=== PATIENT | female | born 2000 | race African-American/Black ===

== ENCOUNTER 2022-03-02 17:00 | Inpatient (IN) | payer OTHER, SELFPAY ==
[2022-03-02 17:04] VITALS: BP 137/90; PULSE 100; RESP 18; TEMP 37.1; O2SAT 99; BMI 21.6
--- NOTE | 2022-03-02 17:16 | ED.PSYCH ---
HPI - Psych General Chief Complaint: Psychiatric Symptoms Stated Complaint: Psych Eval Time Seen by Provider: 03/02/22 17:15 Source: patient Mode of arrival: ambulatory Limitations: no limitations History of Present Illness HPI Narrative: This is a 21-year-old female past medical history significant for depression presenting to the emergency department with complaints of suicidal ideation with plan to cut wrist. According to patient she told a retail customer service specialist on campus that she is feeling suicidal, the retail customer service specialist reached out to the crisis team who called 911. Patient tells me she lives on campus by herself without a roommate. She has a therapist on campus however no psychiatrist. Patient is not taking any medications. She denies visual, auditory and tactile hallucinations. Denies drugs, alcohol and tobacco. She denies any previous SI at times. Denies homicidal ideation. Denies any medical complaints at this time. MD complaint: suicidal ideation and feels depressed Onset (ago): day(s) Duration: constant Relieving factors: none Exacerbating factors: none Associated psychiatric symptoms: none Associated symptoms: denies other symptoms Treatments prior to arrival: none If self harm: admits thoughts of self harm and has plan (cut wrists ) Related Data Home Medications Medication Instructions Recorded Confirmed ferrous sulfate 325 mg (65 mg 325 mg PO BID 03/02/22 03/02/22 iron) tablet Allergies Allergy/AdvReac Type Severity Reaction Status Date / Time Unable to Assess Allergy Unverified 03/02/22 17:15 Review of Systems Review of Systems: Constitutional : No Fever, No Chills ENT/Mouth : No Ear Pain, No Nasal Congestion, No sore throat Eyes: No Eye Pain, No Swelling, No Redness Cardiovascular : No Chest Pain, No SOB Respiratory : No Cough, No Sputum, No Dyspnea Gastrointestinal : No Nausea, No Vomiting, No Diarrhea, No Hematochezia, No Melena Genitourinary : No Dysuria, No Urinary Frequency, No Hematuria Musculoskeletal : No Myalgias Skin : No Skin Lesions, No rash Neuro : No Weakness, No Numbness, No Paresthesias, No Dizziness, No Headache Psych : positive Anxiety, positive Depression, positive SI/HI All other systems reviewed and are negative Yes all other systems are reviewed and are negative [facility] Past Medical History Attestation statement: The following information was validated with the patient. Source: old records reviewed and nursing notes reviewed Social History Social History Advance Directives: No Advance Directives Information Provided: No Patient : No Physical Exam Vital Signs: Vital Signs: Last Vital Signs Temp 98.7 F 03/02/22 17:04 Pulse 100 03/02/22 17:04 Resp 18 03/02/22 17:04 BP 137/90 H 03/02/22 17:04 Pulse Ox 99 03/02/22 17:04 BMI result Body Mass Index 21.6 vss Appearance: Alert.? Oriented X3.? No acute distress.?Flat affect Head: Normocephalic, atraumatic, no step-offs or deformities Eyes: Pupils equal, round and reactive to light.? ENT: Pharynx normal.? Neck: Normal inspection.? Neck supple.? CVS: Normal heart rate and rhythm.? Pulses normal.? Respiratory: No respiratory distress.? Breath sounds normal.? Abdomen: Soft and nontender.? Skin: Skin warm and dry.? Normal skin color.? Normal skin turgor.? Extremities: No lower extremity edema.? No calf ttp. 5/5 strength to bilateral upper and lower extremities Back: No midline tenderness, no C-spine tenderness, full range of motion, no CVA tenderness bilaterally Neuro: Oriented X 3.? No motor deficit.? No sensory deficit. CN 2-12 intact Course Reevaluation(s) Reevaluation #1: CBC within normal limits. Chemistry with no acute electrolyte abnormalities requiring intervention. Urine clean. Urine toxicology negative. Ethanol negative. COVID negative. Plan at this time is for patient to go to tomorrow. At this time patient will be placed into physician observation to allow more time to be placed on the inpatient psychiatric unit. At time observation was started patient common cooperative no acute distress. Will continue to monitor. Time: 18:57 MDM - Psych MDM Narrative Medical decision making narrative: 1715 21-year-old female presents with suicidal ideation with plan to cut bilateral wrists. Seen earlier by N Physical exam benign. Patient w/ flat affect Plan medical clearance. Medical Records Attestation: I reviewed the patient's medical records. Lab Data Attestation: I reviewed the patient's lab results. Result diagrams: 03/02/22 17:42 03/02/22 17:42 Labs: Lab Results 03/02/22 03/02/22 03/02/22 Range/Units 17:38 17:38 17:38 WBC (4.8-10.8) X10*3/uL RBC (4.20-5.50) X10*6/uL Hgb (12.0-16.0) g/dl Hct (37.0-47.0) % MCV (80.0-98.0) fL MCH (27.0-33.0) pg MCHC (31.0-35.0) g/dl RDW (11.0-16.0) % Plt Count (160-400) X10*3/uL MPV (9.4-12.3) fL Immature Gran % (Auto) (0.0-0.4) % Neut % (Auto) (45-73) % Lymph % (Auto) (20-40) % [place] % (Auto) (2-11) % Eos % (Auto) (0-4) % Baso % (Auto) (0-2) % Lymph # (Auto) (1.2-4.9) X10*3/uL [place] # (Auto) (0.1-1.2) X10*3/uL Eos # (Auto) (0.0-0.4) X10*3/uL Baso # (Auto) (0.0-0.2) X10*3/uL Abs Immat Gran (auto) (0.00-0.03) X10*3/uL Absolute Neuts (auto) (2.0-8.3) x10*3/uL Absolute Nucleated RBC (0.0-0.012) X10*3/uL Nucleated RBC % (auto) (0.0-0.2) /100WBC Sodium (135-145) mmol/L Potassium (3.3-5.1) mmol/L Chloride (96-108) mmol/L Carbon Dioxide (22-29) mmol/L Anion Gap (12-20) BUN (9-16) mg/dL Creatinine (0.5-1.4) mg/dL Estim Creat Clear Calc Estimated GFR Random Glucose (60-115) mg/dL Calcium (8.4-10.2) mg/dL Magnesium (1.6-2.6) mg/dL Total Bilirubin (0.0-1.0) mg/dL AST (5-31) U/L ALT (0-31) U/L Alkaline Phosphatase (39-117) U/L Total Protein (6.5-8.0) g/dL Albumin (3.5-5.0) g/dL Urine Color YELLOW Urine Appearance HAZY Urine pH 5.5 (5.0-8.0) Ur Specific [place] >= 1.030 H (1.005-1.025) Urine Protein NEG (NEG-TRACE) MG/DL Urine Glucose (UA) NEG (NEG) MG/DL Urine Ketones NEG (NEG) MG/DL Urine Blood NEG (NEG) Urine Nitrite NEG (NEG) Ur Leukocyte Esterase NEG (NEG) Urine Test (NEGATIVE) Urine Opiates Screen Not Detected (Not Detect) Urine Fentanyl Screen Not Detected (Not Detect) Ur Barbiturates Screen Not Detected (Not Detect) Ur Phencyclidine Scrn Not Detected (Not Detect) Ur Amphetamines Screen Not Detected (Not Detect) U Benzodiazepines Scrn Not Detected (Not Detect) Urine Cocaine Screen Not Detected (Not Detect) U Marijuana (THC) Screen Not Detected (Not Detect) Ethyl Alcohol mg/dL COVID-19 ([facility]) Negative (Negative) COVID-19 Clin Com See Note 03/02/22 03/02/22 03/02/22 Range/Units 17:38 17:42 17:42 WBC 5.8 (4.8-10.8) X10*3/uL RBC 4.47 (4.20-5.50) X10*6/uL Hgb 12.5 (12.0-16.0) g/dl Hct 38.4 (37.0-47.0) % MCV 85.9 (80.0-98.0) fL MCH 28.0 (27.0-33.0) pg MCHC 32.6 (31.0-35.0) g/dl RDW 13.1 (11.0-16.0) % Plt Count 383 (160-400) X10*3/uL MPV 10.4 (9.4-12.3) fL Immature Gran % (Auto) 0.2 (0.0-0.4) % Neut % (Auto) 55.9 (45-73) % Lymph % (Auto) 32.6 (20-40) % [place] % (Auto) 9.0 (2-11) % Eos % (Auto) 1.6 (0-4) % Baso % (Auto) 0.7 (0-2) % Lymph # (Auto) 1.9 (1.2-4.9) X10*3/uL [place] # (Auto) 0.5 (0.1-1.2) X10*3/uL Eos # (Auto) 0.1 (0.0-0.4) X10*3/uL Baso # (Auto) 0.0 (0.0-0.2) X10*3/uL Abs Immat Gran (auto) 0.01 (0.00-0.03) X10*3/uL Absolute Neuts (auto) 3.2 (2.0-8.3) x10*3/uL Absolute Nucleated RBC 0.000 (0.0-0.012) X10*3/uL Nucleated RBC % (auto) 0.0 (0.0-0.2) /100WBC Sodium 136 (135-145) mmol/L Potassium 4.4 (3.3-5.1) mmol/L Chloride 103 (96-108) mmol/L Carbon Dioxide 27 (22-29) mmol/L Anion Gap 10 L (12-20) BUN 8 L (9-16) mg/dL Creatinine 0.84 (0.5-1.4) mg/dL Estim Creat Clear Calc 96.1 Estimated GFR > 60 Random Glucose 89 (60-115) mg/dL Calcium 10.1 (8.4-10.2) mg/dL Magnesium 2.1 (1.6-2.6) mg/dL Total Bilirubin 0.3 (0.0-1.0) mg/dL AST 15 (5-31) U/L ALT 13 (0-31) U/L Alkaline Phosphatase 101 (39-117) U/L Total Protein 7.9 (6.5-8.0) g/dL Albumin 4.5 (3.5-5.0) g/dL Urine Color Urine Appearance Urine pH (5.0-8.0) Ur Specific [place] (1.005-1.025) Urine Protein (NEG-TRACE) MG/DL Urine Glucose (UA) (NEG) MG/DL Urine Ketones (NEG) MG/DL Urine Blood (NEG) Urine Nitrite (NEG) Ur Leukocyte Esterase (NEG) Urine Test NEGATIVE (NEGATIVE) Urine Opiates Screen (Not Detect) Urine Fentanyl Screen (Not Detect) Ur Barbiturates Screen (Not Detect) Ur Phencyclidine Scrn (Not Detect) Ur Amphetamines Screen (Not Detect) U Benzodiazepines Scrn (Not Detect) Urine Cocaine Screen (Not Detect) U Marijuana (THC) Screen (Not Detect) Ethyl Alcohol mg/dL COVID-19 ([facility]) (Negative) COVID-19 Clin Com 03/02/22 Range/Units 17:42 WBC (4.8-10.8) X10*3/uL RBC (4.20-5.50) X10*6/uL Hgb (12.0-16.0) g/dl Hct (37.0-47.0) % MCV (80.0-98.0) fL MCH (27.0-33.0) pg MCHC (31.0-35.0) g/dl RDW (11.0-16.0) % Plt Count (160-400) X10*3/uL MPV (9.4-12.3) fL Immature Gran % (Auto) (0.0-0.4) % Neut % (Auto) (45-73) % Lymph % (Auto) (20-40) % [place] % (Auto) (2-11) % Eos % (Auto) (0-4) % Baso % (Auto) (0-2) % Lymph # (Auto) (1.2-4.9) X10*3/uL [place] # (Auto) (0.1-1.2) X10*3/uL Eos # (Auto) (0.0-0.4) X10*3/uL Baso # (Auto) (0.0-0.2) X10*3/uL Abs Immat Gran (auto) (0.00-0.03) X10*3/uL Absolute Neuts (auto) (2.0-8.3) x10*3/uL Absolute Nucleated RBC (0.0-0.012) X10*3/uL Nucleated RBC % (auto) (0.0-0.2) /100WBC Sodium (135-145) mmol/L Potassium (3.3-5.1) mmol/L Chloride (96-108) mmol/L Carbon Dioxide (22-29) mmol/L Anion Gap (12-20) BUN (9-16) mg/dL Creatinine (0.5-1.4) mg/dL Estim Creat Clear Calc Estimated GFR Random Glucose (60-115) mg/dL Calcium (8.4-10.2) mg/dL Magnesium (1.6-2.6) mg/dL Total Bilirubin (0.0-1.0) mg/dL AST (5-31) U/L ALT (0-31) U/L Alkaline Phosphatase (39-117) U/L Total Protein (6.5-8.0) g/dL Albumin (3.5-5.0) g/dL Urine Color Urine Appearance Urine pH (5.0-8.0) Ur Specific [place] (1.005-1.025) Urine Protein (NEG-TRACE) MG/DL Urine Glucose (UA) (NEG) MG/DL Urine Ketones (NEG) MG/DL Urine Blood (NEG) Urine Nitrite (NEG) Ur Leukocyte Esterase (NEG) Urine Test (NEGATIVE) Urine Opiates Screen (Not Detect) Urine Fentanyl Screen (Not Detect) Ur Barbiturates Screen (Not Detect) Ur Phencyclidine Scrn (Not Detect) Ur Amphetamines Screen (Not Detect) U Benzodiazepines Scrn (Not Detect) Urine Cocaine Screen (Not Detect) U Marijuana (THC) Screen (Not Detect) Ethyl Alcohol < 10 mg/dL COVID-19 ([facility]) (Negative) COVID-19 Clin Com Critical Care Time Critical Care Time Critical Care Time: No Discharge Plan Discharge Clinical Impression: Suicidal ideation, Depression Patient Disposition: Still a Patient Prescriptions: No Action ferrous sulfate 325 mg (65 mg iron) Tablet 325 mg PO BID 0RF
[2022-03-02 17:47] LABS: MANUAL DIFF FLAG NO
--- NOTE | 2022-03-02 17:49 | PHA.MEDREC ---
Pharmacy Consult ? Medication Reconciliation Pharmacy has completed the medication reconciliation. Pt states that she takes an iron supplement twice a day when she remembers. Tosha Tejada, ReidD
[2022-03-02 17:51] LABS: Appearance Urine HAZY; Color Urine YELLOW; Glucose Urine UA NEG (NEG); Leukocyte Esterase Urine NEG (NEG); Nitrite Urine NEG (NEG); PH 5.5 (5.0-8.0); Specific Gravity - Urine >= 1.030 (1.005-1.025); Urine Blood NEG (NEG); Urine Ketones NEG (NEG); Urine Protein NEG (NEG-TRACE)
[2022-03-02 17:54] LABS: UPreg QC Valid YES; Urine Pregnancy NEGATIVE (NEGATIVE)
[2022-03-02 18:05] LABS: Ethanol < 10 mg/dL
[2022-03-02 18:07] LABS: Amphetamine Screen Urine Not Detected (Not Detect); Barbiturates, Urine Not Detected (Not Detect); Benzodiazepines Screen Urine Not Detected (Not Detect); Cannabinoid Screen Urine Not Detected (Not Detect); Cocaine Screen Urine Not Detected (Not Detect); Fentanyl, urine Not Detected (Not Detect); Opiate Screen Urine Not Detected (Not Detect); Phencyclidine Screen Urine Not Detected (Not Detect)
[2022-03-02 18:08] LABS: COVID-19 Test Negative (Negative)
[2022-03-02 18:09] LABS: Alanine Aminotransferase 13 U/L (0-31); Albumin Level 4.5 g/dL (3.5-5.0); Alkaline Phosphatase 101 U/L (39-117); Anion Gap 10 (12-20); Aspartate Amino Transferase 15 U/L (5-31); Bilirubin Total 0.3 mg/dL (0.0-1.0); Blood Urea Nitrogen 8 mg/dL (9-16); Calcium 10.1 mg/dL (8.4-10.2); Carbon Dioxide 27 mmol/L (22-29); Chloride 103 mmol/L (96-108); Creatinine Clr Calc Pharmacy 96.1; Estimated Glomerular Filt Rate > 60; Glucose Random 89 mg/dL (60-115); Magnesium 2.1 mg/dL (1.6-2.6); Potassium 4.4 mmol/L (3.3-5.1); Sodium 136 mmol/L (135-145); Total Protein 7.9 g/dL (6.5-8.0)
[2022-03-02 18:16] LABS: Basophils Percent Auto 0.7 % (0-2); Eosinophils Absolute Auto 0.1 X10*3/uL (0.0-0.4); Eosinophils Percent Auto 1.6 % (0-4); Hematocrit 38.4 % (37.0-47.0); Hemoglobin 12.5 g/dl (12.0-16.0); Imm Gran Abs Auto 0.01 X10*3/uL (0.00-0.03); Imm Gran Pct Auto 0.2 % (0.0-0.4); Lymphocytes Absolute Auto 1.9 X10*3/uL (1.2-4.9); Lymphocytes Percent Auto 32.6 % (20-40); Mean Corpuscular HGB Conc 32.6 g/dl (31.0-35.0); Mean Corpuscular Volume 85.9 fL (80.0-98.0); Mean Platelet Volume 10.4 fL (9.4-12.3); Monocytes Absolute Auto 0.5 X10*3/uL (0.1-1.2); Neutrophils Absolute Auto 3.2 x10*3/uL (2.0-8.3); Neutrophils Percent Auto 55.9 % (45-73); Platelet Count 383 X10*3/uL (160-400); Red Blood Count 4.47 X10*6/uL (4.20-5.50); Red Cell Distribution Width 13.1 % (11.0-16.0); White Blood Count 5.8 X10*3/uL (4.8-10.8)
[2022-03-03 05:00] VITALS: RESP 17
[2022-03-03 08:50] VITALS: BP 108/64; PULSE 86; RESP 16; TEMP 37.2; O2SAT 98
[2022-03-03 14:40] LABS: Iron 91 mcg/dL (30-160); Percent Iron Saturation 28 % (15-50); Total Iron Binding Capacity 322 mcg/dL (228-428); Unsaturated Iron Binding 231 ug/dL
--- NOTE | 2022-03-03 15:53 | P.HPPS_ITS ---
HPI Date of Service: 03/03/22 Chief Complaint: si Sources of Information: patient interviewed, chart reviewed and crisis/core team assessment reviewed Additional Sources of Information: Kennedi(mother)/Da (father) [phone] HPI Subjective Notes: Conditional Voluntary Narrative: Ms. Trinidad is a 21 year-old woman with hx of depression. She was assessed by [facility] crisis at the request of her [facility]'s counselor due to Ms. Trinidad disclosing cutting thighs with kitchen knife and subsequently having increased suicidal ideation. She was transported via EMS to [facility] ED. In the ED, her utox was negative. On the unit, Ms. Trinidad reports increased depression for the past 2 months. She reports in last year family member from mother side . She also reports feeling significant pressure at school and to perform well as the first member of her family in college. She reports she has reach out to friends and family during this past several weeks. She reports parents do not believe in mental illness and there response has been snap out of it. Pt denies hx of psychosis. She denies hx of increase energy or elated mood. Past Psychiatric History: Inpatient: none OP: none Past med trials: never been on psychotropic meds. Suicide attempts: denies Medical Evaluation Reviewed: Yes [facility] Family History: denies Social History: born in [place]. Youngest of 6 siblings. Teja at [employer], doing well. Strong expectations from parents. Substance History: none Trauma History: not disclose Diagnostics Vital Signs (24Hr): Vital Signs - 24 hr 03/02/22 17:04 03/03/22 05:00 03/03/22 08:50 Temperature 98.7 F 98.9 F Pulse Rate 100 86 Respiratory Rate 18 17 16 Blood Pressure 137/90 H 108/64 Pulse Oximetry 99 98 BMI result Body Mass Index 21.6 Labs Results: 03/02/22 17:42 03/02/22 17:42 Labs: Laboratory Results - last 48 hr 03/02/22 03/02/22 03/02/22 17:38 17:38 17:38 WBC RBC Hgb Hct MCV MCH MCHC RDW Plt Count MPV Immature Gran % (Auto) Neut % (Auto) Lymph % (Auto) [place] % (Auto) Eos % (Auto) Baso % (Auto) Lymph # (Auto) [place] # (Auto) Eos # (Auto) Baso # (Auto) Abs Immat Gran (auto) Absolute Neuts (auto) Absolute Nucleated RBC Nucleated RBC % (auto) Sodium Potassium Chloride Carbon Dioxide Anion Gap BUN Creatinine Estim Creat Clear Calc Estimated GFR Random Glucose Calcium Magnesium Iron TIBC % Saturation Unsat Iron Binding Total Bilirubin AST ALT Alkaline Phosphatase Total Protein Albumin Urine Color YELLOW Urine Appearance HAZY Urine pH 5.5 Ur Specific [place] >= 1.030 H Urine Protein NEG Urine Glucose (UA) NEG Urine Ketones NEG Urine Blood NEG Urine Nitrite NEG Ur Leukocyte Esterase NEG Urine Test Urine Opiates Screen Not Detected Urine Fentanyl Screen Not Detected Ur Barbiturates Screen Not Detected Ur Phencyclidine Scrn Not Detected Ur Amphetamines Screen Not Detected U Benzodiazepines Scrn Not Detected Urine Cocaine Screen Not Detected U Marijuana (THC) Screen Not Detected Ethyl Alcohol COVID-19 ([facility]) Negative COVID-19 Clin Com See Note 03/02/22 03/02/22 03/02/22 17:38 17:42 17:42 WBC 5.8 RBC 4.47 Hgb 12.5 Hct 38.4 MCV 85.9 MCH 28.0 MCHC 32.6 RDW 13.1 Plt Count 383 MPV 10.4 Immature Gran % (Auto) 0.2 Neut % (Auto) 55.9 Lymph % (Auto) 32.6 [place] % (Auto) 9.0 Eos % (Auto) 1.6 Baso % (Auto) 0.7 Lymph # (Auto) 1.9 [place] # (Auto) 0.5 Eos # (Auto) 0.1 Baso # (Auto) 0.0 Abs Immat Gran (auto) 0.01 Absolute Neuts (auto) 3.2 Absolute Nucleated RBC 0.000 Nucleated RBC % (auto) 0.0 Sodium 136 Potassium 4.4 Chloride 103 Carbon Dioxide 27 Anion Gap 10 L BUN 8 L Creatinine 0.84 Estim Creat Clear Calc 96.1 Estimated GFR > 60 Random Glucose 89 Calcium 10.1 Magnesium 2.1 Iron TIBC % Saturation Unsat Iron Binding Total Bilirubin 0.3 AST 15 ALT 13 Alkaline Phosphatase 101 Total Protein 7.9 Albumin 4.5 Urine Color Urine Appearance Urine pH Ur Specific [place] Urine Protein Urine Glucose (UA) Urine Ketones Urine Blood Urine Nitrite Ur Leukocyte Esterase Urine Test NEGATIVE Urine Opiates Screen Urine Fentanyl Screen Ur Barbiturates Screen Ur Phencyclidine Scrn Ur Amphetamines Screen U Benzodiazepines Scrn Urine Cocaine Screen U Marijuana (THC) Screen Ethyl Alcohol COVID-19 ([facility]) COVID-19 Ghost 03/02/22 03/03/22 17:42 14:15 WBC RBC Hgb Hct MCV MCH MCHC RDW Plt Count MPV Immature Gran % (Auto) Neut % (Auto) Lymph % (Auto) [place] % (Auto) Eos % (Auto) Baso % (Auto) Lymph # (Auto) [place] # (Auto) Eos # (Auto) Baso # (Auto) Abs Immat Gran (auto) Absolute Neuts (auto) Absolute Nucleated RBC Nucleated RBC % (auto) Sodium Potassium Chloride Carbon Dioxide Anion Gap BUN Creatinine Estim Creat Clear Calc Estimated GFR Random Glucose Calcium Magnesium Iron 91 TIBC 322 % Saturation 28 Unsat Iron Binding 231 Total Bilirubin AST ALT Alkaline Phosphatase Total Protein Albumin Urine Color Urine Appearance Urine pH Ur Specific [place] Urine Protein Urine Glucose (UA) Urine Ketones Urine Blood Urine Nitrite Ur Leukocyte Esterase Urine Test Urine Opiates Screen Urine Fentanyl Screen Ur Barbiturates Screen Ur Phencyclidine Scrn Ur Amphetamines Screen U Benzodiazepines Scrn Urine Cocaine Screen U Marijuana (THC) Screen Ethyl Alcohol < 10 COVID-19 ([facility]) COVID-19 [facility] Com Meds/Allergies Meds Home Medications Acetaminophen (Acetaminophen 325 Mg Tablet) 650 mg PO Q6H PRN PRN Reason: Headache/Pain Mild Scale (1-3) Al Hydroxide/Mg Hydroxide (Magnesium Hydrox/Alum Hydrox 30 Ml Oral.Susp) 30 ml PO Q6H PRN PRN Reason: Heartburn/Nausea Hydroxyzine HCl (Hydroxyzine Hcl 25 Mg Tablet) 25 mg PO Q6H PRN PRN Reason: Anxiety Magnesium Hydroxide (Milk Of Magnesia 30 Ml Oral.Susp) 30 ml PO DAILY PRN PRN Reason: Constipation Pharmacy Consult (Consult Rx Perform Med Rec) 1 each MISCELLANE ONCE PRN PRN Reason: Consult order Trazodone HCl (Trazodone Hcl 50 Mg Tablet) 50 mg PO BEDTIME PRN PRN Reason: Insomnia Allergies Allergies Allergy/AdvReac Type Severity Reaction Status Date / Time Unable to Assess Allergy Unverified 03/02/22 17:15 Mental Status Exam Mental Status Exam Narrative: Appearance: casually groomed, fair hygiene in NAD Behavior: cooperative, quiet psychomotor:no agitation or retardation noted Speech:clear, normal rate/rhythm/volume, spontaneous Thought process:linear Thought content:no signs of psychosis, feeling depressed Mood: depressed Affect: blunted SI:none at this time HI:none VH/AH:none Delusions:none Insight/judgment:fair x 2. Memory/cog: alert, oriented x 3. grossly intact to conversational testing. Assessment & Plan Assessment & Plan (1) MDD (major depressive disorder), recurrent episode, moderate: Status: Acute Code(s): F33.1 - Major depressive disorder, recurrent, moderate Plan Ms. Mccurdy is a 21 year-old woman with hx of depression. This is her first inpatient psychiatric admission after she was evaluated by [facility] in the community at the request of her school's counselor as pt reported increased depression, cutting thigh and increase SI. On the unit, pt continues to report depressed mood, denies SI/HI but open to start treatment. We discussed risks, benefits and alternative treatment options. She agrees to start lexapro PLAN 1. Admit to M5, CV, 15 minutes checks for safety 2. Start lexapro 5mg po daily, increase to 10mg po daily in few days 3. obtain collateral information 4. aftercare planning. Patient educated on: diagnosis and medication risk/benefits Reason for continued inpatient stay Substantial Risk for: harm to self
--- NOTE | 2022-03-03 16:08 | PC.NURSE ---
Pt declined flu vaccine, already immunized this season
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
[2022-03-03] MEDS: Escitalopram Oxalate 5 MG TABLET PO (17:33)
[2022-03-03 18:00] VITALS: BP 92/62; PULSE 72; RESP 17; TEMP 36.8; O2SAT 99
[2022-03-04 06:00] VITALS: BP 108/59; PULSE 108; RESP 18; TEMP 36.7; O2SAT 95
[2022-03-04 08:06] LABS: Estimated Average Glucose 97 mg/dL
[2022-03-04 08:12] LABS: Alanine Aminotransferase 10 U/L (0-31); Albumin Level 3.7 g/dL (3.5-5.0); Alkaline Phosphatase 82 U/L (39-117); Anion Gap 8 (12-20); Aspartate Amino Transferase 13 U/L (5-31); Bilirubin Total 0.3 mg/dL (0.0-1.0); Blood Urea Nitrogen 11 mg/dL (9-16); Calcium 9.7 mg/dL (8.4-10.2); Carbon Dioxide 28 mmol/L (22-29); Chloride 105 mmol/L (96-108); Cholesterol 159 mg/dL; Creatinine Clr Calc Pharmacy 106.3; Estimated Glomerular Filt Rate > 60; Glucose Fasting 86 mg/dL (60-99); HDL Cholesterol 39 mg/dL; LDL Cholesterol Calculated 113 mg/dl; Potassium 4.1 mmol/L (3.3-5.1); Sodium 137 mmol/L (135-145); Total Protein 6.5 g/dL (6.5-8.0); Triglycerides 38 mg/dL
[2022-03-04 08:16] LABS: Thyroid Stimulating Hormone 0.88 uIU/mL (0.32-4.0)
--- NOTE | 2022-03-04 08:39 | P.PNPSI_ITS ---
Subjective Subjective Date of Service: 03/04/22 Reason For Visit: si Subjective Notes: Conditional Voluntary Interim History: 03/04: H and P reviewed. Mood is depressed but safe here. Acknowledged Hx SIB on thighs over past several months. No SI. Tolerating meds. Review of Systems Review of Systems Constitutional : No Fever, No Chills ENT/Mouth : No Ear Pain, No Nasal Congestion, No sore throat Eyes: No Eye Pain, No Swelling, No Redness Cardiovascular : No Chest Pain, No SOB Respiratory : No Cough, No Sputum, No Dyspnea Gastrointestinal : No Nausea, No Vomiting, No Diarrhea, No Hematochezia, No Melena Genitourinary : No Dysuria, No Urinary Frequency, No Hematuria Musculoskeletal : No Myalgias Skin : No Skin Lesions, No rash Neuro : No Weakness, No Numbness, No Paresthesias, No Dizziness, No Headache Psych : positive Anxiety, positive Depression, positive SI/HI All other systems reviewed and are negative Yes all other systems are reviewed and are negative Constitutional: Reports no additional constitutional complaints and Reports head ache(s) Eyes: Reports no additional eye complaints Reports system reviewed and no additional complaints, except as documented, Reports Normal hearing present and Reports headache(s) Cardiovascular: Denies chest pain, Denies lightheadedness and Denies dyspnea Respiratory: Denies dyspnea Gastrointestinal: Reports constipation, Denies diarrhea and Denies nausea Musculoskeletal: Reports no additional musculoskeletal complaints Reports Normal hearing present and Reports headache(s) Mental Status Exam Mental Status Exam Narrative: Appearance: casually groomed, fair hygiene in NAD Behavior: cooperative, quiet psychomotor:no agitation or retardation noted Speech:clear, normal rate/rhythm/volume, spontaneous Thought process:linear Thought content:no signs of psychosis, feeling depressed Mood: depressed Affect: blunted SI:none at this time HI:none VH/AH:none Delusions:none Insight/judgment:fair x 2. Memory/cog: alert, oriented x 3. grossly intact to conversational testing. Patient Appearance: Well Grooomed Level of Consciousness: Awake Mood Description: Calm Affect Description: Constricted and Sad Speech Pattern: Clear Memory Description: Intact Hallucinations: None Depressive Symptoms: Isolating-Friends/Family, Feelings of Guilt, Unhappiness, Increased Fatigue and Loss of Energy Judgement: Good Diagnostics Vital Signs (24Hr): Vital Signs - 24 hr 03/03/22 08:50 03/03/22 18:00 03/04/22 06:00 Temperature 98.9 F 98.2 F 98.0 F Pulse Rate 86 72 108 H Respiratory Rate 16 17 18 Blood Pressure 108/64 92/62 108/59 L Pulse Oximetry 98 99 95 BMI result Body Mass Index 21.6 Labs Results: 03/02/22 17:42 03/04/22 06:57 Labs: Laboratory Results - last 48 hr 03/02/22 03/02/22 03/02/22 17:38 17:38 17:38 WBC RBC Hgb Hct MCV MCH MCHC RDW Plt Count MPV Immature Gran % (Auto) Neut % (Auto) Lymph % (Auto) [place] % (Auto) Eos % (Auto) Baso % (Auto) Lymph # (Auto) [place] # (Auto) Eos # (Auto) Baso # (Auto) Abs Immat Gran (auto) Absolute Neuts (auto) Absolute Nucleated RBC Nucleated RBC % (auto) Sodium Potassium Chloride Carbon Dioxide Anion Gap BUN Creatinine Estim Creat Clear Calc Estimated GFR Random Glucose Fasting Glucose Estimat Average Glucose Hemoglobin A1c % Calcium Magnesium Iron TIBC % Saturation Unsat Iron Binding Total Bilirubin AST ALT Alkaline Phosphatase Total Protein Albumin Triglycerides Cholesterol LDL Cholesterol, Calc HDL Cholesterol TSH Urine Color YELLOW Urine Appearance HAZY Urine pH 5.5 Ur Specific [place] >= 1.030 H Urine Protein NEG Urine Glucose (UA) NEG Urine Ketones NEG Urine Blood NEG Urine Nitrite NEG Ur Leukocyte Esterase NEG Urine Test Urine Opiates Screen Not Detected Urine Fentanyl Screen Not Detected Ur Barbiturates Screen Not Detected Ur Phencyclidine Scrn Not Detected Ur Amphetamines Screen Not Detected U Benzodiazepines Scrn Not Detected Urine Cocaine Screen Not Detected U Marijuana (THC) Screen Not Detected Ethyl Alcohol COVID-19 ([facility]) Negative COVID-19 Clin Com See Note 03/02/22 03/02/22 03/02/22 17:38 17:42 17:42 WBC 5.8 RBC 4.47 Hgb 12.5 Hct 38.4 MCV 85.9 MCH 28.0 MCHC 32.6 RDW 13.1 Plt Count 383 MPV 10.4 Immature Gran % (Auto) 0.2 Neut % (Auto) 55.9 Lymph % (Auto) 32.6 [place] % (Auto) 9.0 Eos % (Auto) 1.6 Baso % (Auto) 0.7 Lymph # (Auto) 1.9 [place] # (Auto) 0.5 Eos # (Auto) 0.1 Baso # (Auto) 0.0 Abs Immat Gran (auto) 0.01 Absolute Neuts (auto) 3.2 Absolute Nucleated RBC 0.000 Nucleated RBC % (auto) 0.0 Sodium 136 Potassium 4.4 Chloride 103 Carbon Dioxide 27 Anion Gap 10 L BUN 8 L Creatinine 0.84 Estim Creat Clear Calc 96.1 Estimated GFR > 60 Random Glucose 89 Fasting Glucose Estimat Average Glucose Hemoglobin A1c % Calcium 10.1 Magnesium 2.1 Iron TIBC % Saturation Unsat Iron Binding Total Bilirubin 0.3 AST 15 ALT 13 Alkaline Phosphatase 101 Total Protein 7.9 Albumin 4.5 Triglycerides Cholesterol LDL Cholesterol, Calc HDL Cholesterol TSH Urine Color Urine Appearance Urine pH Ur Specific [place] Urine Protein Urine Glucose (UA) Urine Ketones Urine Blood Urine Nitrite Ur Leukocyte Esterase Urine Test NEGATIVE Urine Opiates Screen Urine Fentanyl Screen Ur Barbiturates Screen Ur Phencyclidine Scrn Ur Amphetamines Screen U Benzodiazepines Scrn Urine Cocaine Screen U Marijuana (THC) Screen Ethyl Alcohol COVID-19 ([facility]) COVID-19 Clin Com 03/02/22 03/03/22 03/04/22 17:42 14:15 06:57 WBC RBC Hgb Hct MCV MCH MCHC RDW Plt Count MPV Immature Gran % (Auto) Neut % (Auto) Lymph % (Auto) [place] % (Auto) Eos % (Auto) Baso % (Auto) Lymph # (Auto) [place] # (Auto) Eos # (Auto) Baso # (Auto) Abs Immat Gran (auto) Absolute Neuts (auto) Absolute Nucleated RBC Nucleated RBC % (auto) Sodium 137 Potassium 4.1 Chloride 105 Carbon Dioxide 28 Anion Gap 8 L BUN 11 Creatinine 0.76 Estim Creat Clear Calc 106.3 Estimated GFR > 60 Random Glucose Fasting Glucose 86 Estimat Average Glucose Hemoglobin A1c % Calcium 9.7 Magnesium Iron 91 TIBC 322 % Saturation 28 Unsat Iron Binding 231 Total Bilirubin 0.3 AST 13 ALT 10 Alkaline Phosphatase 82 Total Protein 6.5 Albumin 3.7 Triglycerides 38 Cholesterol 159 LDL Cholesterol, Calc 113 HDL Cholesterol 39 TSH 0.88 Urine Color Urine Appearance Urine pH Ur Specific [place] Urine Protein Urine Glucose (UA) Urine Ketones Urine Blood Urine Nitrite Ur Leukocyte Esterase Urine Test Urine Opiates Screen Urine Fentanyl Screen Ur Barbiturates Screen Ur Phencyclidine Scrn Ur Amphetamines Screen U Benzodiazepines Scrn Urine Cocaine Screen U Marijuana (THC) Screen Ethyl Alcohol < 10 COVID-19 ([facility]) COVID-19 [facility] Com 03/04/22 06:57 WBC RBC Hgb Hct MCV MCH MCHC RDW Plt Count MPV Immature Gran % (Auto) Neut % (Auto) Lymph % (Auto) [place] % (Auto) Eos % (Auto) Baso % (Auto) Lymph # (Auto) [place] # (Auto) Eos # (Auto) Baso # (Auto) Abs Immat Gran (auto) Absolute Neuts (auto) Absolute Nucleated RBC Nucleated RBC % (auto) Sodium Potassium Chloride Carbon Dioxide Anion Gap BUN Creatinine Estim Creat Clear Calc Estimated GFR Random Glucose Fasting Glucose Estimat Average Glucose 97 Hemoglobin A1c % 5.0 Calcium Magnesium Iron TIBC % Saturation Unsat Iron Binding Total Bilirubin AST ALT Alkaline Phosphatase Total Protein Albumin Triglycerides Cholesterol LDL Cholesterol, Calc HDL Cholesterol TSH Urine Color Urine Appearance Urine pH Ur Specific [place] Urine Protein Urine Glucose (UA) Urine Ketones Urine Blood Urine Nitrite Ur Leukocyte Esterase Urine Test Urine Opiates Screen Urine Fentanyl Screen Ur Barbiturates Screen Ur Phencyclidine Scrn Ur Amphetamines Screen U Benzodiazepines Scrn Urine Cocaine Screen U Marijuana (THC) Screen Ethyl Alcohol COVID-19 ([facility]) COVID-19 [facility] Com Medications Medications Current Medications Acetaminophen (Acetaminophen 325 Mg Tablet) 650 mg PO Q6H PRN PRN Reason: Headache/Pain Mild Scale (1-3) Al Hydroxide/Mg Hydroxide (Magnesium Hydrox/Alum Hydrox 30 Ml Oral.Susp) 30 ml PO Q6H PRN PRN Reason: Heartburn/Nausea Escitalopram Oxalate (Escitalopram Oxalate 5 Mg Tablet) 5 mg PO DAILY [facility] Last Admin: 03/03/22 17:33 Dose: 5 mg Documented by: Hydroxyzine HCl (Hydroxyzine Hcl 25 Mg Tablet) 25 mg PO Q6H PRN PRN Reason: Anxiety Magnesium Hydroxide (Milk Of Magnesia 30 Ml Oral.Susp) 30 ml PO DAILY PRN PRN Reason: Constipation Pharmacy Consult (Consult Rx Perform Med Rec) 1 each MISCELLANE ONCE PRN PRN Reason: Consult order Trazodone HCl (Trazodone Hcl 50 Mg Tablet) 50 mg PO BEDTIME PRN PRN Reason: Insomnia Allergies Allergies Allergy/AdvReac Type Severity Reaction Status Date / Time Unable to Assess Allergy Unverified 03/02/22 17:15 Assessment & Plan Assessment & Plan (1) MDD (major depressive disorder), recurrent episode, moderate: Status: Acute Code(s): F33.1 - Major depressive disorder, recurrent, moderate Plan Ms. Mccurdy is a 21 year-old woman with hx of depression. This is her first inpatient psychiatric admission after she was evaluated by CON[facility] norton in the community at the request of her school's counselor as pt reported increased depression, cutting thigh and increase SI. On the unit, pt continues to report depressed mood, denies SI/HI but open to start treatment. We discussed risks, benefits and alternative treatment options. She agrees to start lexapro PLAN 1. Admit to M5, CV, 15 minutes checks for safety 2. Start lexapro 5mg po daily, increase to 10mg po daily in few days 3. obtain collateral information 4. aftercare planning. 03/04: Ct Rx plan. Encourage group therapy I spent minutes with the patient and/or on the patient floor today, greater than?50% of which was spent counseling/coordinating care. Patient educated on: diagnosis Informed Consent: understands Reason for contiued inpatient stay Substantial Risk for: harm to self
[2022-03-04] MEDS: Escitalopram Oxalate 5 MG TABLET PO (08:43)
[2022-03-04 18:00] VITALS: BP 112/69; PULSE 77; RESP 18; TEMP 36.4; O2SAT 98
--- NOTE | 2022-03-05 05:28 | HO.PSYCHPN ---
Subjective Subjective Date of Service: 03/05/22 Reason For Visit: si Subjective Notes: Conditional Voluntary Interim History: 03/04: H and P reviewed. Mood is depressed but safe here. Acknowledged Hx SIB on thighs over past several months. No SI. Tolerating meds. 03/05: Mood sad but safer. Polite responses. Pleased with school pastors visit. Surprised by parents support in [facility].Ct meds Review of Systems Review of Systems Constitutional : No Fever, No Chills ENT/Mouth : No Ear Pain, No Nasal Congestion, No sore throat Eyes: No Eye Pain, No Swelling, No Redness Cardiovascular : No Chest Pain, No SOB Respiratory : No Cough, No Sputum, No Dyspnea Gastrointestinal : No Nausea, No Vomiting, No Diarrhea, No Hematochezia, No Melena Genitourinary : No Dysuria, No Urinary Frequency, No Hematuria Musculoskeletal : No Myalgias Skin : No Skin Lesions, No rash Neuro : No Weakness, No Numbness, No Paresthesias, No Dizziness, No Headache Psych : positive Anxiety, positive Depression, positive SI/HI All other systems reviewed and are negative Yes all other systems are reviewed and are negative Constitutional: Reports no additional constitutional complaints and Reports headache(s) Eyes: Reports no additional eye complaints Reports system reviewed and no additional complaints, except as documented, Reports Normal hearing present and Reports headache(s) Cardiovascular: Denies chest pain, Denies lightheadedness and Denies dyspnea Respiratory: Denies dyspnea Gastrointestinal: Reports constipation, Denies diarrhea and Denies nausea Musculoskeletal: Reports no additional musculoskeletal complaints Reports Normal hearing present and Reports headache(s) Mental Status Exam Mental Status Exam Narrative: Appearance: casually groomed, fair hygiene in NAD Behavior: cooperative, quiet psychomotor:no agitation or retardation noted Speech:clear, normal rate/rhythm/volume, spontaneous Thought process:linear Thought content:no signs of psychosis, feeling depressed Mood: depressed Affect: blunted SI:none at this time HI:none VH/AH:none Delusions:none Insight/judgment:fair x 2. Memory/cog: alert, oriented x 3. grossly intact to conversational testing. Patient Appearance: Well Grooomed Level of Consciousness: Awake Mood Description: Calm Affect Description: Constricted and Sad Speech Pattern: Clear Memory Description: Intact Diagnostics Vital Signs (24Hr): Vital Signs - 24 hr 03/04/22 06:00 03/04/22 18:00 Temperature 98.0 F 97.6 F Pulse Rate 108 H 77 Respiratory Rate 18 18 Blood Pressure 108/59 L 112/69 Pulse Oximetry 95 98 BMI result Body Mass Index 21.6 Labs Results: 03/02/22 17:42 03/04/22 06:57 Labs: Laboratory Results - last 48 hr 03/03/22 03/04/22 03/04/22 14:15 06:57 06:57 Sodium 137 Potassium 4.1 Chloride 105 Carbon Dioxide 28 Anion Gap 8 L BUN 11 Creatinine 0.76 Estim Creat Clear Calc 106.3 Estimated GFR > 60 Fasting Glucose 86 Estimat Average Glucose 97 Hemoglobin A1c % 5.0 Calcium 9.7 Iron 91 TIBC 322 % Saturation 28 Unsat Iron Binding 231 Total Bilirubin 0.3 AST 13 ALT 10 Alkaline Phosphatase 82 Total Protein 6.5 Albumin 3.7 Triglycerides 38 Cholesterol 159 LDL Cholesterol, Calc 113 HDL Cholesterol 39 TSH 0.88 Medications Medications Current Medications Acetaminophen (Acetaminophen 325 Mg Tablet) 650 mg PO Q6H PRN PRN Reason: Headache/Pain Mild Scale (1-3) Al Hydroxide/Mg Hydroxide (Magnesium Hydrox/Alum Hydrox 30 Ml Oral.Susp) 30 ml PO Q6H PRN PRN Reason: Heartburn/Nausea Escitalopram Oxalate (Escitalopram Oxalate 5 Mg Tablet) 5 mg PO DAILY [facility] Last Admin: 03/04/22 08:43 Dose: 5 mg Documented by: Hydroxyzine HCl (Hydroxyzine Hcl 25 Mg Tablet) 25 mg PO Q6H PRN PRN Reason: Anxiety Magnesium Hydroxide (Milk Of Magnesia 30 Ml Oral.Susp) 30 ml PO DAILY PRN PRN Reason: Constipation Pharmacy Consult (Consult Rx Perform Med Rec) 1 each MISCELLANE ONCE PRN PRN Reason: Consult order Trazodone HCl (Trazodone Hcl 50 Mg Tablet) 50 mg PO BEDTIME PRN PRN Reason: Insomnia Allergies Allergies Allergy/AdvReac Type Severity Reaction Status Date / Time Unable to Assess Allergy Unverified 03/02/22 17:15 Assessment & Plan Assessment & Plan (1) MDD (major depressive disorder), recurrent episode, moderate: Status: Acute Code(s): F33.1 - Major depressive disorder, recurrent, moderate Plan Ms. Mccurdy is a 21 year-old woman with hx of depression. This is her first inpatient psychiatric admission after she was evaluated by CONCH[facility] norton in the community at the request of her school's counselor as pt reported increased depression, cutting thigh and increase SI. On the unit, pt continues to report depressed mood, denies SI/HI but open to start treatment. We discussed risks, benefits and alternative treatment options. She agrees to start lexapro PLAN 1. Admit to M5, CV, 15 minutes checks for safety 2. Start lexapro 5mg po daily, increase to 10mg po daily in few days 3. obtain collateral information 4. aftercare planning. 03/04: Ct Rx plan. Encourage group therapy 03/05: Ct Rx plan I spent minutes with the patient and/or on the patient floor today, greater than?50% of which was spent counseling/coordinating care. Reason for contiued inpatient stay Substantial Risk for: harm to self
[2022-03-05 06:00] VITALS: BP 103/64; PULSE 104; RESP 16; TEMP 36.6; O2SAT 98
[2022-03-05] MEDS: Escitalopram Oxalate 5 MG TABLET PO (08:45)
[2022-03-05 18:00] VITALS: BP 109/68; PULSE 92; RESP 16; TEMP 36.4; O2SAT 98
[2022-03-06 06:00] VITALS: BP 92/50; PULSE 75; RESP 16; TEMP 36.3; O2SAT 97
[2022-03-06 07:08] LABS: Folate 14.6 ng/mL (> or = 4.0); Vitamin B12 868 pg/mL (200-900)
[2022-03-06] MEDS: Escitalopram Oxalate 5 MG TABLET PO (08:57)
--- NOTE | 2022-03-06 11:37 | HO.PSYCHPN ---
Subjective Subjective Date of Service: 03/06/22 Reason For Visit: si Subjective Notes: Conditional Voluntary Interim History: Pt reports she is less overwhelmed but continues to have urges to self harm- cut thighs but no intent to do so. She reports last night havinf fleeting SI thoughts but again no plan or intent to harm self. Pt has been mostly in bed, has attended some groups. She reports relieved by support from parents. She is taking lexapro no side effects noted or reported. Agrees to increase dose to 10mg po daily. She also agrees to schedule trazodone as she reports waking up several times at night. Medication Compliance: Yes Side effects from medications: No Review of Systems Review of Systems Constitutional : No Fever, No Chills ENT/Mouth : No Ear Pain, No Nasal Congestion, No sore throat Eyes: No Eye Pain, No Swelling, No Redness Cardiovascular : No Chest Pain, No SOB Respiratory : No Cough, No Sputum, No Dyspnea Gastrointestinal : No Nausea, No Vomiting, No Diarrhea, No Hematochezia, No Melena Genitourinary : No Dysuria, No Urinary Frequency, No Hematuria Musculoskeletal : No Myalgias Skin : No Skin Lesions, No rash Neuro : No Weakness, No Numbness, No Paresthesias, No Dizziness, No Headache Psych : positive Anxiety, positive Depression, positive SI/HI All other systems reviewed and are negative Yes all other systems are reviewed and are negative Constitutional: Reports no additional constitutional complaints and Reports headache(s) Eyes: Reports no additional eye complaints Reports system reviewed and no additional complaints, except as documented, Reports Normal hearing present and Reports headache(s) Cardiovascular: Denies chest pain, Denies lightheadedness and Denies dyspnea Respiratory: Denies dyspnea Gastrointestinal: Reports constipation, Denies diarrhea and Denies nausea Musculoskeletal: Reports no additional musculoskeletal complaints Reports Normal hearing present and Reports headache(s) Mental Status Exam Mental Status Exam Narrative: Appearance: casually groomed, fair hygiene in NAD Behavior: cooperative, quiet psychomotor:no agitation or retardation noted Speech:clear, normal rate/rhythm/volume, spontaneous Thought process:linear Thought content:no signs of psychosis, feeling depressed Mood: depressed Affect: blunted SI:none at this time HI:none VH/AH:none Delusions:none Insight/judgment:fair x 2. Memory/cog: alert, oriented x 3. grossly intact to conversational testing. Diagnostics Vital Signs (24Hr): Vital Signs - 24 hr 03/06/22 18:00 03/07/22 06:00 Temperature 97 F 97.8 F Pulse Rate 84 89 Respiratory Rate 16 Blood Pressure 102/62 92/50 L Pulse Oximetry 98 BMI result Body Mass Index 21.6 Labs Results: 03/02/22 17:42 03/04/22 06:57 Labs: Laboratory Results - last 48 hr 03/04/22 06:57 Vitamin B12 868 Folate 14.6 Medications Medications Current Medications Acetaminophen (Acetaminophen 325 Mg Tablet) 650 mg PO Q6H PRN PRN Reason: Headache/Pain Mild Scale (1-3) Al Hydroxide/Mg Hydroxide (Magnesium Hydrox/Alum Hydrox 30 Ml Oral.Susp) 30 ml PO Q6H PRN PRN Reason: Heartburn/Nausea Escitalopram Oxalate (Escitalopram Oxalate 10 Mg Tablet) 10 mg PO DAILY [facility] Hydroxyzine HCl (Hydroxyzine Hcl 25 Mg Tablet) 25 mg PO Q6H PRN PRN Reason: Anxiety Magnesium Hydroxide (Milk Of Magnesia 30 Ml Oral.Susp) 30 ml PO DAILY PRN PRN Reason: Constipation Pharmacy Consult (Consult Rx Perform Med Rec) 1 each MISCELLANE ONCE PRN PRN Reason: Consult order Trazodone HCl (Trazodone Hcl 50 Mg Tablet) 50 mg PO BEDTIME PRN PRN Reason: Insomnia Trazodone HCl (Trazodone Hcl 50 Mg Tablet) 50 mg PO BEDTIME [facility] Last Admin: 03/06/22 22:54 Dose: 50 mg Documented by: Allergies Allergies Allergy/AdvReac Type Severity Reaction Status Date / Time Unable to Assess Allergy Unverified 03/02/22 17:15 Assessment & Plan Assessment & Plan (1) MDD (major depressive disorder), recurrent episode, moderate: Status: Acute Code(s): F33.1 - Major depressive disorder, recurrent, moderate Plan Ms. Mccurdy is a 21 year-old woman with hx of depression. This is her first inpatient psychiatric admission after she was evaluated by Armando norton in the community at the request of her school's counselor as pt reported increased depression, cutting thigh and increase SI. On the unit, pt continues to report depressed mood, denies SI/HI but open to start treatment. We discussed risks, benefits and alternative treatment options. She agrees to start lexapro PLAN 1. Admit to M5, CV, 15 minutes checks for safety 2. Start lexapro 5mg po daily, increase to 10mg po daily in few days 3. obtain collateral information 4. aftercare planning. 03/04: Ct Rx plan. Encourage group therapy 03/05: Ct Rx plan 03/06: increase lexapro to 10mg po daily. add trazodone 50mg po qhs for sleep. aftercare planning. I spent minutes with the patient and/or on the patient floor today, greater than?50% of which was spent counseling/coordinating care. Reason for contiued inpatient stay Substantial Risk for: harm to self
[2022-03-06 18:00] VITALS: BP 102/62; PULSE 84; TEMP 36.1
[2022-03-06] MEDS: Docusate Sodium 100 MG CAPSULE PO (20:44)
[2022-03-06] MEDS: traZODone HCL 50 MG TABLET PO (22:54)
[2022-03-07 06:00] VITALS: BP 92/50; PULSE 89; RESP 16; TEMP 36.6; O2SAT 98
[2022-03-07] MEDS: Escitalopram Oxalate 10 MG TABLET PO (08:38)
--- NOTE | 2022-03-07 11:12 | HO.PSYCHPN ---
Subjective Subjective Date of Service: 03/07/22 Reason For Visit: si Subjective Notes: Conditional Voluntary Interim History: Pt reports feeling less depressed. She reports she slept much better with trazodone last night. She denies SI/HI. She reports looking forward to return to class and feels ready for discharge tomorrow. She denies urges to engage in self cutting. Per nursing, no behavioral concerns. Medication Compliance: Yes Side effects from medications: No Attending Groups: Yes Review of Systems Review of Systems Constitutional : No Fever, No Chills ENT/Mouth : No Ear Pain, No Nasal Congestion, No sore throat Eyes: No Eye Pain, No Swelling, No Redness Cardiovascular : No Chest Pain, No SOB Respiratory : No Cough, No Sputum, No Dyspnea Gastrointestinal : No Nausea, No Vomiting, No Diarrhea, No Hematochezia, No Melena Genitourinary : No Dysuria, No Urinary Frequency, No Hematuria Musculoskeletal : No Myalgias Skin : No Skin Lesions, No rash Neuro : No Weakness, No Numbness, No Paresthesias, No Dizziness, No Headache Psych : positive Anxiety, positive Depression, positive SI/HI All other systems reviewed and are negative Yes all other systems are reviewed and are negative Constitutional: Reports no additional constitutional complaints and Reports headache(s) Eyes: Reports no additional eye complaints Reports system reviewed and no additional complaints, except as documented, Reports Normal hearing present and Reports headache(s) Cardiovascular: Denies chest pain, Denies lightheadedness and Denies dyspnea Respiratory: Denies dyspnea Gastrointestinal: Reports constipation, Denies diarrhea and Denies nausea Musculoskeletal: Reports no additional musculoskeletal complaints Reports Normal hearing present and Reports headache(s) Mental Status Exam Mental Status Exam Narrative: Appearance: casually groomed, fair hygiene in NAD Behavior: cooperative, quiet psychomotor:no agitation or retardation noted Speech:clear, normal rate/rhythm/volume, spontaneous Thought process:linear Thought content:no signs of psychosis, feeling depressed Mood: depressed Affect: blunted SI:none at this time HI:none VH/AH:none Delusions:none Insight/judgment:fair x 2. Memory/cog: alert, oriented x 3. grossly intact to conversational testing. Diagnostics Vital Signs (24Hr): Vital Signs - 24 hr 03/06/22 18:00 03/07/22 06:00 Temperature 97 F 97.8 F Pulse Rate 84 89 Respiratory Rate 16 Blood Pressure 102/62 92/50 L Pulse Oximetry 98 BMI result Body Mass Index 21.6 Labs Results: 03/02/22 17:42 03/04/22 06:57 Labs: Laboratory Results - last 48 hr 03/04/22 06:57 Vitamin B12 868 Folate 14.6 Medications Medications Current Medications Acetaminophen (Acetaminophen 325 Mg Tablet) 650 mg PO Q6H PRN PRN Reason: Headache/Pain Mild Scale (1-3) Al Hydroxide/Mg Hydroxide (Magnesium Hydrox/Alum Hydrox 30 Ml Oral.Susp) 30 ml PO Q6H PRN PRN Reason: Heartburn/Nausea Escitalopram Oxalate (Escitalopram Oxalate 10 Mg Tablet) 10 mg PO DAILY [facility] Last Admin: 03/07/22 08:38 Dose: 10 mg Documented by: Hydroxyzine HCl (Hydroxyzine Hcl 25 Mg Tablet) 25 mg PO Q6H PRN PRN Reason: Anxiety Magnesium Hydroxide (Milk Of Magnesia 30 Ml Oral.Susp) 30 ml PO DAILY PRN PRN Reason: Constipation Pharmacy Consult (Consult Rx Perform Med Rec) 1 each MISCELLANE ONCE PRN PRN Reason: Consult order Trazodone HCl (Trazodone Hcl 50 Mg Tablet) 50 mg PO BEDTIME PRN PRN Reason: Insomnia Trazodone HCl (Trazodone Hcl 50 Mg Tablet) 50 mg PO BEDTIME [facility] Last Admin: 03/06/22 22:54 Dose: 50 mg Documented by: Allergies Allergies Allergy/AdvReac Type Severity Reaction Status Date / Time Unable to Assess Allergy Unverified 03/02/22 17:15 Assessment & Plan Assessment & Plan (1) MDD (major depressive disorder), recurrent episode, moderate: Status: Acute Code(s): F33.1 - Major depressive disorder, recurrent, moderate Plan Ms. Mccurdy is a 21 year-old woman with hx of depression. This is her first inpatient psychiatric admission after she was evaluated by [facility] in the community at the request of her school's counselor as pt reported increased depression, cutting thigh and increase SI. On the unit, pt continues to report depressed mood, denies SI/HI but open to start treatment. We discussed risks, benefits and alternative treatment options. She agrees to start lexapro PLAN 1. Admit to M5, CV, 15 minutes checks for safety 2. Start lexapro 5mg po daily, increase to 10mg po daily in few days 3. obtain collateral information 4. aftercare planning. 03/04: Ct Rx plan. Encourage group therapy 03/05: Ct Rx plan 03/06: increase lexapro to 10mg po daily. add trazodone 50mg po qhs for sleep. aftercare planning. 03/07 continue current medications. d/c 03/08 I spent __25____ minutes with the patient and/or on the patient floor today, greater than?50% of which was spent counseling/coordinating care. Reason for contiued inpatient stay Substantial Risk for: stable for discharge
[2022-03-07 18:39] VITALS: BP 101/69; PULSE 72; TEMP 36.7; O2SAT 100
[2022-03-07] MEDS: traZODone HCL 50 MG TABLET PO (21:08)
[2022-03-08 06:00] VITALS: BP 97/55; PULSE 69; RESP 15; TEMP 36.3; O2SAT 99
[2022-03-08] MEDS: Escitalopram Oxalate 10 MG TABLET PO (08:42)
--- NOTE | 2022-03-08 08:51 | PM.PSYDC ---
DS: Providers Provider Date of Service: 03/08/22 Date of admission: 03/03/22 11:06 Primary care physician: Unknown Physician DS: Diagnosis Discharge Diagnosis (1) MDD (major depressive disorder), recurrent episode, moderate: Status: Acute DS: Medications Discharge Medications Home Medications: Home Medications Medication Instructions Recorded Confirmed ferrous sulfate 325 mg (65 mg 325 mg PO BID 03/02/22 03/02/22 iron) tablet Previous Rx's Medication Instructions Recorded escitalopram oxalate 10 mg tablet 10 mg PO DAILY #30 tab 03/08/22 trazodone 50 mg tablet 50 mg PO BEDTIME #30 tab 03/08/22 Mental Status Exam Mental Status Exam Narrative: Appearance: casually groomed, fair hygiene in NAD Behavior: cooperative, quiet psychomotor:no agitation or retardation noted Speech:clear, normal rate/rhythm/volume, spontaneous Thought process:linear Thought content:no signs of psychosis, feeling better and supported by family Mood: better Affect: brighter. SI:none at this time HI:none VH/AH:none Delusions:none Insight/judgment:fair x 2. Memory/cog: alert, oriented x 3. grossly intact to conversational testing. Data Data Completed and Pending Completed studies during hospitalization [Text1]: 03/02/22 03/02/22 03/02/22 17:38 17:38 17:38 WBC RBC Hgb Hct MCV MCH MCHC RDW Plt Count MPV Immature Gran % (Auto) Neut % (Auto) Lymph % (Auto) [place] % (Auto) Eos % (Auto) Baso % (Auto) Lymph # (Auto) [place] # (Auto) Eos # (Auto) Baso # (Auto) Abs Immat Gran (auto) Absolute Neuts (auto) Absolute Nucleated RBC Nucleated RBC % (auto) Sodium Potassium Chloride Carbon Dioxide Anion Gap BUN Creatinine Estim Creat Clear Calc Estimated GFR Random Glucose Fasting Glucose Estimat Average Glucose Hemoglobin A1c % Calcium Magnesium Iron TIBC % Saturation Unsat Iron Binding Total Bilirubin AST ALT Alkaline Phosphatase Total Protein Albumin Triglycerides Cholesterol LDL Cholesterol, Calc HDL Cholesterol Vitamin B12 Folate TSH Urine Color YELLOW Urine Appearance HAZY Urine pH 5.5 Ur Specific [place] >= 1.030 H Urine Protein NEG Urine Glucose (UA) NEG Urine Ketones NEG Urine Blood NEG Urine Nitrite NEG Ur Leukocyte Esterase NEG Urine Test Urine Opiates Screen Not Detected Urine Fentanyl Screen Not Detected Ur Barbiturates Screen Not Detected Ur Phencyclidine Scrn Not Detected Ur Amphetamines Screen Not Detected U Benzodiazepines Scrn Not Detected Urine Cocaine Screen Not Detected U Marijuana (THC) Screen Not Detected Ethyl Alcohol COVID-19 ([facility]) Negative COVID-19 Clin Com See Note 03/02/22 03/02/22 03/02/22 17:38 17:42 17:42 WBC 5.8 RBC 4.47 Hgb 12.5 Hct 38.4 MCV 85.9 MCH 28.0 MCHC 32.6 RDW 13.1 Plt Count 383 MPV 10.4 Immature Gran % (Auto) 0.2 Neut % (Auto) 55.9 Lymph % (Auto) 32.6 [place] % (Auto) 9.0 Eos % (Auto) 1.6 Baso % (Auto) 0.7 Lymph # (Auto) 1.9 [place] # (Auto) 0.5 Eos # (Auto) 0.1 Baso # (Auto) 0.0 Abs Immat Gran (auto) 0.01 Absolute Neuts (auto) 3.2 Absolute Nucleated RBC 0.000 Nucleated RBC % (auto) 0.0 Sodium 136 Potassium 4.4 Chloride 103 Carbon Dioxide 27 Anion Gap 10 L BUN 8 L Creatinine 0.84 Estim Creat Clear Calc 96.1 Estimated GFR > 60 Random Glucose 89 Fasting Glucose Estimat Average Glucose Hemoglobin A1c % Calcium 10.1 Magnesium 2.1 Iron TIBC % Saturation Unsat Iron Binding Total Bilirubin 0.3 AST 15 ALT 13 Alkaline Phosphatase 101 Total Protein 7.9 Albumin 4.5 Triglycerides Cholesterol LDL Cholesterol, Calc HDL Cholesterol Vitamin B12 Folate TSH Urine Color Urine Appearance Urine pH Ur Specific [place] Urine Protein Urine Glucose (UA) Urine Ketones Urine Blood Urine Nitrite Ur Leukocyte Esterase Urine Test NEGATIVE Urine Opiates Screen Urine Fentanyl Screen Ur Barbiturates Screen Ur Phencyclidine Scrn Ur Amphetamines Screen U Benzodiazepines Scrn Urine Cocaine Screen U Marijuana (THC) Screen Ethyl Alcohol COVID-19 ([facility]) COVID-19 Clin Com 03/02/22 03/03/22 03/04/22 17:42 14:15 06:57 WBC RBC Hgb Hct MCV MCH MCHC RDW Plt Count MPV Immature Gran % (Auto) Neut % (Auto) Lymph % (Auto) [place] % (Auto) Eos % (Auto) Baso % (Auto) Lymph # (Auto) [place] # (Auto) Eos # (Auto) Baso # (Auto) Abs Immat Gran (auto) Absolute Neuts (auto) Absolute Nucleated RBC Nucleated RBC % (auto) Sodium 137 Potassium 4.1 Chloride 105 Carbon Dioxide 28 Anion Gap 8 L BUN 11 Creatinine 0.76 Estim Creat Clear Calc 106.3 Estimated GFR > 60 Random Glucose Fasting Glucose 86 Estimat Average Glucose Hemoglobin A1c % Calcium 9.7 Magnesium Iron 91 TIBC 322 % Saturation 28 Unsat Iron Binding 231 Total Bilirubin 0.3 AST 13 ALT 10 Alkaline Phosphatase 82 Total Protein 6.5 Albumin 3.7 Triglycerides 38 Cholesterol 159 LDL Cholesterol, Calc 113 HDL Cholesterol 39 Vitamin B12 Folate TSH 0.88 Urine Color Urine Appearance Urine pH Ur Specific [place] Urine Protein Urine Glucose (UA) Urine Ketones Urine Blood Urine Nitrite Ur Leukocyte Esterase Urine Test Urine Opiates Screen Urine Fentanyl Screen Ur Barbiturates Screen Ur Phencyclidine Scrn Ur Amphetamines Screen U Benzodiazepines Scrn Urine Cocaine Screen U Marijuana (THC) Screen Ethyl Alcohol < 10 COVID-19 ([facility]) COVID-19 [employer] Com 03/04/22 03/04/22 06:57 06:57 WBC RBC Hgb Hct MCV MCH MCHC RDW Plt Count MPV Immature Gran % (Auto) Neut % (Auto) Lymph % (Auto) [place] % (Auto) Eos % (Auto) Baso % (Auto) Lymph # (Auto) [place] # (Auto) Eos # (Auto) Baso # (Auto) Abs Immat Gran (auto) Absolute Neuts (auto) Absolute Nucleated RBC Nucleated RBC % (auto) Sodium Potassium Chloride Carbon Dioxide Anion Gap BUN Creatinine Estim Creat Clear Calc Estimated GFR Random Glucose Fasting Glucose Estimat Average Glucose 97 Hemoglobin A1c % 5.0 Calcium Magnesium Iron TIBC % Saturation Unsat Iron Binding Total Bilirubin AST ALT Alkaline Phosphatase Total Protein Albumin Triglycerides Cholesterol LDL Cholesterol, Calc HDL Cholesterol Vitamin B12 868 Folate 14.6 TSH Urine Color Urine Appearance Urine pH Ur Specific [place] Urine Protein Urine Glucose (UA) Urine Ketones Urine Blood Urine Nitrite Ur Leukocyte Esterase Urine Test Urine Opiates Screen Urine Fentanyl Screen Ur Barbiturates Screen Ur Phencyclidine Scrn Ur Amphetamines Screen U Benzodiazepines Scrn Urine Cocaine Screen U Marijuana (THC) Screen Ethyl Alcohol COVID-19 ([facility]) COVID-19 Clin Com DS: Summary Hospital Course Hospital Course: Subjective Notes: Conditional Voluntary Narrative: Ms. Trinidad is a 21 year-old woman with hx of depression. She was assessed by [facility] crisis at the request of her [employer]'s counselor due to Ms. Trinidad disclosing cutting thighs with kitchen knife and subsequently having increased suicidal ideation. She was transported via EMS to [facility] ED. In the ED, her utox was negative. On the unit, Ms. Trinidad reports increased depression for the past 2 months. She reports in last year family member from mother side . She also reports feeling significant pressure at school and to perform well as the first member of her family in college. She reports she has reach out to friends and family during this past several weeks. She reports parents do not believe in mental illness and there response has been snap out of it. Pt denies hx of psychosis. She denies hx of increase energy or elated mood. Past Psychiatric History: Inpatient: none OP: none Past med trials: never been on psychotropic meds. Suicide attempts: denies Medical Evaluation Reviewed: Yes HOSPITAL COURSE On the unit, Ms. Trinidad was admitted on a CV and placed on 15 minutes checks for safety. After discussing risks, benefits and alternative treatment options, Ms. Trinidad agreed to start lexapro for depression. She was also started on trazodone for sleep. During this hospitalization, Ms. Trinidad was able to speak with her parents who per report by Ms. Trinidad appeared much more supportive and understanding than what she had expected. She was increasingly more visible in the unit and attended assigned groups. She gradually reported less symptoms of depression, feeling less anxious. She denied SI/HI. She also denied urges to engage in self injurious behaviors such as cutting. She agreed to be referred to OP psych tx. There were no incidences of disruptive behaviors nor use of restraints. Status at Discharge Cognitive/behavioral status at discharge: Ms. Trinidad presents with brighter affect, increasingly more future oriented in that she is looking forward to continue OP psych tx. She denied SI/HI. She did not appear internally preoccupied nor signs of delusional content was ever reported or suspected. No signs of aggression towards self or others. Functional status at discharge: independent ambulation Overall status at discharge: patient is progressing back to baseline Time Spent with Patient Time attestation: Total time spent providing and/or coordinating discharge services: Time spent: Greater than 30 minutes Discharge Plan Discharge Patient Disposition: Home, Self-Care Discharge Diagnosis: MDD, recurrent, moderate Referrals: Physician,Unknown J [Primary Care Provider] - 1 Week Discharge Medications: New trazodone 50 mg Tablet 50 mg PO BEDTIME Qty: 30 0RF escitalopram oxalate 10 mg Tablet 10 mg PO DAILY Qty: 30 0RF Continued ferrous sulfate 325 mg (65 mg iron) Tablet 325 mg PO BID 0RF Discharge Orders: Discharge Order (Routine); Ordered 03/08/22 Ordered By: Marina Felix Diet: regular diet Activity on Discharge: As tolerated Stand Alone Forms: Patient Portal Discharge page Care Plan Goals: 1. Maintain mood. 2. no SI/HI 3. No self harm behaviors Health Concerns: Follow up with PCP for routine care Plan of Treatment: 1. Take medications as prescribed. 2. Go to nearest ED or call 911 in event of emergency. Assessment: Pt with brighter, non labile affect. Increasingly more future oriented, no SI/HI. No signs of psychosis or delusional content. No signs of aggression towards self or others. In agreement to continue OP psych tx.
--- NOTE | 2022-03-08 12:19 | PM.EVENT ---
Event Note Date of Service: 03/08/22 Event Note: To whom it may concern: Ms. Teresa Trinidad (: 2000) was admitted to inpatient level of care between 03/03-03/08/2022 for assessment and treatment of increase depression, suicidal ideation and self injurious behaviors. At the time of discharge, Ms. Trinidad presented in much improved condition in that her affect was brighter, non labile. She reported decreased symptoms of depression and denied SI/HI as well as urges to engage in self injurious behaviors (non suicidal) after starting antidepressant and participating in group therapy. She presented increasingly more future oriented, more hopeful without any signs of aggression towards self or others. MS. Trinidad has agreed to continue recommended OP psychiatric treatment including stepping down to PHP and continuing OP psychiatric treatment after that. At this moment, there are no imminent safety concerns in terms of harm to self or others to continue inpatient level of care. Ms. Trinidad agrees to call crisis line or call 911 or go to nearest ED in event of reoccurring or worsening symptoms of depression and suicidality. Sincerely, JENNIFER MartinezP
== END 2022-03-08 14:00 | disposition home or self-care (01) | DRG 885 ==
LOC: HO.ED 03-03 07:19 → HO.PM5 03-03 13:50
PROVIDERS: Physician Assistant; Admitting Provider Psychiatry & Neurology Psychiatry; Emergency Provider Internal Medicine; Visit Provider Social Worker
DX: F33.1 Major depressive disorder, recurrent, moderate (principal); R45.851 Suicidal ideations; Z20.822 Contact with and (suspected) exposure to COVID-19; Z91.52 Personal history of nonsuicidal self-harm; Z79.899 Other long term (current) drug therapy
CPT/HCPCS: 36415; 80053; 80061; 80307; 81003; 81025; 82077; 82607; 82746; 83036; 83540; 83735; 84443; 85025; 87635; 99285

== ENCOUNTER 2022-04-05 10:00 | Outpatient (RCR) | payer OTHER, SELFPAY ==
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
--- NOTE | 2022-03-23 14:50 | PC.NURSE ---
Case opened in treatment team
--- NOTE | 2022-03-23 16:03 | PC.NURSE ---
I called and left a message for pt. Asked her to pls callback to review treatment plan.
[2022-03-27 08:17] VITALS: BMI 21.6
--- NOTE | 2022-03-27 11:36 | HO.PHPPROGNO ---
Subjective Subjective Date of Service: 03/27/22 Reason For Visit: MDD Guardianship: No Medical Problems Affecting Mental Status: No Interim History: Continues with depressed mood, flat,blunted affect. Increased passive SI. Willing to have increase in escitalopram. Medication Compliance: Yes Side effects from medications: No Attending Groups: Yes Review of Systems Acute medical concerns: No Medical Review of Systems: unchanged Review of Systems Review of Systems Yes all other systems are reviewed and are negative Constitutional: Reports no additional constitutional complaints Mental Status Exam Mental Status Exam Narrative: NAD. Passive SI, says they have worsened. Denies plan/intent. Patient Appearance: Appropriate Patient Orientation: Person, Place, Time and Situation Level of Consciousness: Awake and Appropriate Patient Behavior: Cooperative and Good Eye Contact Mood Description: Depressed Affect Description: Depressed and Flat Patient Cognition Impaired: No Ability to Follow Directions: Good Speech Pattern: Clear, Coherent and Soft-Spoken Memory Description: Intact Hallucinations: None Delusions: Not Present Thought Process: Intact Thought Content: positive for Suicidal Ideation (denies plan/intent) Depressive Symptoms: Loss of Int. in Activity, Hopelessness, Isolating-Friends/Family, Unhappiness, Increased Fatigue and Thoughts of /Suicide Judgement: Fair Assessment & Plan Assessment & Plan (1) MDD (major depressive disorder), recurrent episode, moderate: Status: Acute Code(s): F33.1 - Major depressive disorder, recurrent, moderate Assessment and Plan: Patient reports increased passive SI, states they have gotten worse, I'm having a rough time . Denies any intent or plan to act on SI at this time. Reports she is alone today. Discussed calling crisis, she states she does not feel she needs crisis at this time. When asked if she has numbers of people she can call for support, she stated that she does. She is willing to have a increase in escitalopram at this time. (2) Generalized anxiety disorder: Status: Acute Code(s): F41.1 - Generalized anxiety disorder Plan I discussed this case with my supervisor nuclear medicine, who will call patient promptly. 1. Continue with current [facility] plan of care at this time. 3. Increase escitalopram to 15 mg daily. Patient educated on: medication risk/benefits and therapeutic strategies Informed Consent: understands Reason for contiued partial hosp. stay Substantial Risk for: harm to self, inability to function and med/psych decompensation Certification I certify that partial hospital treatment is medically necessary due to the symptoms and problems resulting from the patient's mental illness and the failure to treat the patient at the partial hospital level of care would likely result in the patient requiring inpatient psychiatric care which could not be prevented at a less intensive level of care. I spent minutes with the patient and/or on the patient floor today, greater than?50% of which was spent counseling/coordinating care. Discharge Plan Discharge Attending provider: Saad Jaimes Medications: New escitalopram oxalate [Lexapro] 10 mg tablet 15 mg PO DAILY 14 Days Qty: 21 0RF Discontinued escitalopram oxalate 10 mg Tablet 10 mg PO DAILY Qty: 30 0RF No Action ferrous sulfate 325 mg (65 mg iron) Tablet 325 mg PO BID 0RF trazodone 50 mg Tablet 50 mg PO BEDTIME Qty: 30 0RF Stand Alone Forms: Patient Portal Discharge page Telehealth Telehealth Location of provider rendering services: practice address Location of patient: address on file Patient Identification confirmed using: Name, : Yes Telehealth method: video Patient verbally consented to treatment: Yes Patient verbally consented to billing insurance company: Yes Patient informed of any privacy concerns related to visit: Yes Minutes spent on Phone/Video with Pt.: 20
--- NOTE | 2022-03-27 12:05 | PC.NURSE ---
This program evaluation consultant called Teresa on the telephone since Alisonpacheco Garner indicated that she was worried about her following a medication consultation. In speaking with Teresa, she reported that she was staying at the [facility] and was feeling lonely and sad today. Even though she denied any SI or self harming behaviors, she was feeling isolated and that most of the students are home for break. In discussing some supports, she said there are 2 Resident Mlies Advisors in her building and that she feels comfortable reaching out to them if she needed to. She was planning on resuming with groups at [facility] for the remainder of the day, go for a walk around campus, then go to dinner at the [facility] [employer]. This vice president & general manager [employer] [place] told her primary therapist, here at [facility] to check in with Teresa before leaving the office today as an additional check in and to provide this daily check in for Teresa while in the program, and to ask Teresa if she'd allow us to communicate with RA. at the [facility]. Shayan
--- NOTE | 2022-03-27 17:05 | PC.NURSE ---
I called and spoke to pt after she spoke to manager of program Annabel Colmenares, [facility]. Pt shared that she has been feeling a bit more down today, and has struggled with some passive fleeting SI earlier in the day. We reviewed treatment plan and spoke about use of supports. Pt reported being closest to her spiritual counselor, who was assigned to her by her school and has since retired, but who remains in close contact wiht pt. She said they have lunch together several times a week. 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 She said she gets together with other Karlee and with the head RA regularly. She also shared that she no longer sees Rosa Ernandez, her listed therapist. She said she has been assigned a new therapist who she sees virtually, from [facility]. She also has an assigned med provider at [facility]. She gave permission for [facility] to contact [facility] and signed an ROSANNA virtually for [facility]. She also said she talks with er family regularly, about weekly, and that they are supportive of her being in [facility], and concerned for her. She reported feeling supported by them, but also pressure to feel better faster. She reported feeling down, but safe overall, and agreed to call us, her inbound sales advisor, or crisis if she feels worse or unsafe.
--- NOTE | 2022-03-28 16:23 | PC.NURSE ---
Pt is not scheduled today in [facility], as she said she had a pre-arranged family event to attend. I called her to check in, and she said she is busy and cannot talk. But she said she is okay and will be in program tomorrow.
--- NOTE | 2022-03-29 14:56 | PC.NURSE ---
I called and spoke with pt to check-in. She said she is doing much better and is now staying with a friend from school and her family (she also shared this in the groups today). She reported no SI and no current urges to self harm. She said she's doing well and is not currently in need of assessment. She was not able to identify an area of struggle that she wants to process. She said she'd call if needed.
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
--- NOTE | 2022-03-31 16:16 | PC.NURSE ---
I called and left a message for pt.
--- NOTE | 2022-04-03 14:24 | PC.NURSE ---
I called and left pt a message asking her to call me if she wants to talk or check in. I also left her the number for Holly Dale, financial counselor at [facility], as she expressed concern about receiving a large bill after her inpatient stay. She spoke about this in the group, and said she hand her parents are unable to pay this bill.
--- NOTE | 2022-04-04 15:13 | PC.NURSE ---
I called and spoke to pt. She reported feeling much better emotionally overall, and spoke about how its been helpful to stay with a friend. She also reported having reached out to her academic counselor and said she has a plan to get back on track academically, so she no longer believes she will fail her classes. She reported readiness for discharge from [facility] tomorrow. She is not having any SI.
--- NOTE | 2022-04-05 13:08 | P.PNPSP_ITS ---
Subjective Subjective Date of Service: 04/05/22 Reason For Visit: MDD Guardianship: No Medical Problems Affecting Mental Status: No Interim History: Describes mood as ?I am good ?. States less depressed, less anxious. No side effects from medications, reports the increased dose of escitalopram appears to be helping manage symptoms. Feels ready for discharge from [facility] today. Has some passive SI, describes as now only sometimes, not constant , no intent or plan. States she feels safe. Medication Compliance: Yes Side effects from medications: No Attending Groups: Yes Review of Systems Acute medical concerns: No Medical Review of Systems: unchanged Review of Systems Review of Systems Yes all other systems are reviewed and are negative Constitutional: Reports no additional constitutional complaints Mental Status Exam Mental Status Exam Narrative: NAD. Passive SI, says only intermittent / fleeting now. Denies plan/intent. Patient Appearance: Appropriate Patient Orientation: Person, Place, Time and Situation Level of Consciousness: Awake and Appropriate Patient Behavior: Appropriate, Cooperative and Good Eye Contact Mood Description: Appropriate and Depressed (states has improved, but still present) Affect Description: Appropriate and Flat Patient Cognition Impaired: No Ability to Follow Directions: Good Speech Pattern: Clear, Appropriate, Coherent and Soft-Spoken Memory Description: Intact Hallucinations: None Delusions: Not Present Thought Process: Intact Thought Content: positive for Suicidal Ideation (passive, fleeting, has lessened in frequency and intensity. denies plan/intent) Depressive Symptoms: Isolating-Friends/Family and Thoughts of /Suicide Judgement: Good Diagnostics Vital Signs (24Hr): BMI result Body Mass Index 21.6 Assessment & Plan Assessment & Plan (1) MDD (major depressive disorder), recurrent episode, moderate: Status: Acute Code(s): F33.1 - Major depressive disorder, recurrent, moderate Assessment and Plan: Describes mood as ?I am good ?. States less depressed, less anxious. No side effects from medications, reports the increased dose of escitalopram appears to be helping manage symptoms. Feels ready for discharge from [facility] today. She met with a new outpatient provider at [facility] yesterday, who refilled her medications for her at that time. Plan is to remain on escitalopram 15 mg daily for now. Has some passive SI, describes as now only sometimes, not constant , no intent or plan. States that she is utilizing her support network more now, and understands the importance of this. She was agreeable to call crisis if at any time she begins to feel SI is changing from passive to a more active thoughts. She says that she feels safe. (2) Generalized anxiety disorder: Status: Acute Code(s): F41.1 - Generalized anxiety disorder Plan 1. Patient appears stable for discharge from [facility] today. 2. Patient to follow-up with outpatient providers going forward. Patient educated on: diagnosis, medication risk/benefits and therapeutic strategies Informed Consent: understands Reason for contiued partial hosp. stay Substantial Risk for: stable for discharge Certification I certify that partial hospital treatment is medically necessary due to the symptoms and problems resulting from the patient's mental illness and the failure to treat the patient at the partial hospital level of care would likely result in the patient requiring inpatient psychiatric care which could not be p revented at a less intensive level of care. I spent minutes with the patient and/or on the patient floor today, greater than?50% of which was spent counseling/coordinating care. Discharge Plan Discharge Attending provider: Saad Jaimes Medications: New escitalopram oxalate [Lexapro] 10 mg tablet 15 mg PO DAILY 14 Days Qty: 21 0RF Discontinued escitalopram oxalate 10 mg Tablet 10 mg PO DAILY Qty: 30 0RF No Action ferrous sulfate 325 mg (65 mg iron) Tablet 325 mg PO BID 0RF trazodone 50 mg Tablet 50 mg PO BEDTIME Qty: 30 0RF Stand Alone Forms: Patient Portal Discharge page Telehealth Telehealth Location of provider rendering services: practice address Location of patient: address on file Patient Identification confirmed using: Name, : Yes Telehealth method: video Patient verbally consented to treatment: Yes Patient verbally consented to billing insurance company: Yes Patient informed of any privacy concerns related to visit: Yes Minutes spent on Phone/Video with Pt.: 15
--- NOTE | 2022-04-05 13:41 | PC.NURSE ---
Patient scheduled to discharge from [facility] today. Patient stated she feels, ok regarding discharge and will miss everyone. No safety concerns. Denied SI or thoughts to harm self. Has the crisis number if she ever needed it and stated she has a friend or her employment advisor if she ever needed to reach out for help. Medications reviewed with patient. Medication education provided. Patient reports taking the medications as prescribed.
--- NOTE | 2022-04-05 15:16 | PC.NURSE ---
I called and left a message for pt's therapist at [facility], Shavon Suazo, informing her of pt's successful discharge from [facility].
== END 2022-04-05 23:59 | disposition home or self-care (01) ==
LOC: HO.PHPA 10:00
PROVIDERS: Visit Provider Psychiatry & Neurology Psychiatry
DX: F33.1 Major depressive disorder, recurrent, moderate (principal); F41.1 Generalized anxiety disorder; Z79.899 Other long term (current) drug therapy
CPT/HCPCS: 90791; 90853